=== PATIENT | female | born 1995 | race Two or more races ===

== ENCOUNTER 2019-09-18 13:53 | Inpatient (IN) | payer MEDICAID ==
[~2019-09-18] VITALS: Ht 165.1 cm; Wt 68.9 kg
[2019-09-18] MEDS ORDERED: CHLO25 PO (14:57)
[2019-09-18] MEDS ORDERED: ESCI5SOL2 PO (14:57)
[2019-09-18] MEDS ORDERED: ZIPR20CA2 PO (14:57)
[2019-09-18 15:28] LABS: BASOPHILS % (AUTO) 0.6 % (0.0-2.0); EOSINOPHILS % (AUTO) 0.7 % (1.0-6.0); HEMATOCRIT 37.4 % (36-46); HEMOGLOBIN 12.1 g/dL (12.0-16.0); LYMPHOCYTES # (AUTO) 1.9 K/uL (1.0-4.8); LYMPHOCYTES % (AUTO) 32.4 % (22.0-44.0); MEAN CORPUSCULAR HGB CONC 32.3 G/dL (31.0-37.0); MEAN CORPUSCULAR VOLUME 84 fL (80-100); MONOCYTES # (AUTO) 0.4 K/uL (0.1-1.0); MONOCYTES % (AUTO) 6.3 % (2.0-9.0); NEUTROPHILS # (AUTO) 3.6 K/uL (1.8-7.7); PLATELET COUNT (AUTO) 255 K/uL (150-450); RED BLOOD CELL COUNT(AUTO) 4.48 MIL/uL (4.00-5.20)
[2019-09-18 15:44] LABS: ANION GAP 7 mmol/L (8-16); CALCIUM, TOTAL 9.4 mg/dL (8.8-10.5); CARBON DIOXIDE 26 mmol/L (22-29); CHLORIDE 105 mmol/L (98-107); CREATININE 1.09 mg/dL (0.60-1.30); GLOMERULAR FILTR. RATE CALC > 60 mL/min (>60); GLUCOSE,RANDOM 108 mg/dL (70-110); POTASSIUM 4.4 mmol/L (3.5-5.1); SODIUM SERUM 138 mmol/L (136-145); UREA NITROGEN, BLOOD 16 mg/dL (7-18)
[2019-09-18 15:55] LABS: ALANINE AMINOTRANSFERASE 21 U/L (12-78); ALBUMIN 4.3 g/dL (3.4-5.0); ALKALINE PHOSPHATASE 75 U/L (46-116); ASPARTATE AMINOTRANSFERASE 10 U/L (15-37); BILIRUBIN,TOTAL 0.1 mg/dL (0.1-1.0); HCG,QUANTITATIVE < 1 mIU/mL (0-6); TOTAL PROTEIN, SERUM 7.9 g/dL (6.4-8.2)
[2019-09-18 18:08] LABS: AMPHET/METH SCREEN,URINE NEGATIVE (NEGATIVE); BARBITURATE SCREEN, URINE NEGATIVE (NEGATIVE); BENZODIAZEPINES SCREEN,URINE NEGATIVE (NEGATIVE); CANNABINOID SCREEN,URINE NEGATIVE (NEGATIVE); COCAINE SCREEN,URINE NEGATIVE (NEGATIVE); METHADONE SCREEN, URINE NEGATIVE (NEGATIVE); OPIATE SCREEN,URINE NEGATIVE (NEGATIVE)
[2019-09-18 18:20] LABS: PHENCYCLIDINE SCREEN,URINE NEGATIVE (NEGATIVE)
[2019-09-18] MEDS ORDERED: HALOPERIDOL 5 MG TABLET PO PRN (18:30)
[2019-09-18] MEDS ORDERED: ZOLPIDEM TARTRATE 10 MG TABLET PO PRN (18:30)
[2019-09-19 01:15] VITALS: BP 104/70
[2019-09-19 08:17] VITALS: BP 98/56
[2019-09-19 08:18] LABS: CHOL/HDL RATIO 3.6 (3.9-5.7)
[2019-09-19] MEDS: LORazepam 2 MG TABLET PO PRN (08:30)
[2019-09-19 16:00] VITALS: BP 112/62
[2019-09-19] MEDS: ChlorproMAZINE HCL 25 MG TABLET PO SCH (16:30)
[2019-09-19] MEDS: ZIPRASIDONE HCL 20 MG CAPSULE PO SCH (16:30)
[2019-09-20] MEDS: ZIPRASIDONE HCL 20 MG CAPSULE PO SCH (06:55)
[2019-09-20] MEDS: ChlorproMAZINE HCL 25 MG TABLET PO SCH ×2 (08:49→17:24)
[2019-09-20 16:02] VITALS: BP 110/63
[2019-09-20] MEDS: ZIPRASIDONE HCL 40 MG CAPSULE PO SCH (17:24)
[2019-09-20] MEDS ORDERED: ACETAMINOPHEN 325 MG TABLET PO PRN (18:00)
[2019-09-20] MEDS ORDERED: IBUPROFEN 400 MG TABLET PO PRN (18:00)
[2019-09-20] MEDS ORDERED: MAG HYDROX/AL HYDROX/SIMETH ES 30 ML SUSPENSION UDCUP PO PRN (18:00)
[2019-09-20] MEDS ORDERED: GuaiFENesin/D-METHORPHAN [SUGAR-FREE] 200-20MG/10 ML SYRUP UDCUP PO PRN (18:00)
[2019-09-20] MEDS ORDERED: MAGNESIUM HYDROXIDE SUSPENSION 30 ML UDCUP PO PRN (18:00)
[2019-09-20] MEDS ORDERED: LOPERAMIDE HCL 2 MG CAPSULE PO PRN (18:00)
[2019-09-20] MEDS ORDERED: ESCI10TA PO (18:00)
[2019-09-20] MEDS ORDERED: PETROLATUM,WHITE 28 GM JELLY TP PRN (18:00)
[2019-09-20] MEDS ORDERED: CloNIDine HCL 0.1 MG TABLET PO PRN (18:00)
[2019-09-20] MEDS ORDERED: ONDANSETRON HCL 4 MG TABLET PO PRN (18:00)
[2019-09-20] MEDS ORDERED: DOCUSATE SODIUM 100 MG CAPSULE PO PRN (18:00)
[2019-09-20] MEDS ORDERED: ALBUTEROL SULFATE HFA 90 MCG/PUFF 8 GM INHALER IH PRN (18:00)
[2019-09-20] MEDS ORDERED: NICOTINE 14 MG/24 HOUR PATCH TD PRN (18:00)
[2019-09-21 05:37] VITALS: BP 102/65
[2019-09-21] MEDS: ZIPRASIDONE HCL 40 MG CAPSULE PO SCH ×2 (06:34→17:20)
[2019-09-21 08:17] VITALS: BP 110/66
[2019-09-21] MEDS: ChlorproMAZINE HCL 25 MG TABLET PO SCH ×2 (08:35→17:20)
[2019-09-21 16:00] VITALS: BP 110/70
[2019-09-21] MEDS: LORazepam 2 MG TABLET PO PRN (17:21)
[2019-09-22 06:21] VITALS: BP 101/65
[2019-09-22] MEDS: ZIPRASIDONE HCL 40 MG CAPSULE PO SCH ×2 (07:01→17:13)
[2019-09-22 08:13] VITALS: BP 100/57
[2019-09-22] MEDS: ChlorproMAZINE HCL 25 MG TABLET PO SCH ×2 (08:34→17:12)
[2019-09-22] MEDS: LORazepam 2 MG TABLET PO PRN (17:13)
[2019-09-22 17:27] VITALS: BP 106/66
[2019-09-23 05:57] VITALS: BP 110/56
[2019-09-23] MEDS: ZIPRASIDONE HCL 40 MG CAPSULE PO SCH ×2 (06:39→17:00)
[2019-09-23 08:26] VITALS: BP 99/69
[2019-09-23] MEDS: ChlorproMAZINE HCL 25 MG TABLET PO SCH ×2 (08:27→17:01)
[2019-09-23 16:20] VITALS: BP 100/73
[2019-09-23] MEDS: LORazepam 2 MG TABLET PO PRN (20:36)
[2019-09-24 04:20] VITALS: BP 101/78
[2019-09-24] MEDS: ZIPRASIDONE HCL 40 MG CAPSULE PO SCH (06:38)
[2019-09-24 08:10] VITALS: BP 101/54
[2019-09-24] MEDS: ChlorproMAZINE HCL 25 MG TABLET PO SCH (09:19)
[2019-09-24] MEDS ORDERED: ZIPR40CA2 PO (10:25)
[2019-09-24] MEDS ORDERED: CHLO25 PO (10:25)
[2019-09-24] MEDS: LORazepam 2 MG TABLET PO PRN (12:05)
[2019-09-24 16:14] VITALS: BP 127/70
== END 2019-09-24 16:15 | disposition home or self-care (01) | DRG 750 ==
LOC: EMS 13:55 → B3A 18:52
PROVIDERS: ADMIT Psychiatry & Neurology Psychiatry; ATTEND Psychiatry & Neurology Psychiatry
DX: F20.9 Schizophrenia, unspecified (principal); I95.9 Hypotension, unspecified; R45.851 Suicidal ideations; Z91.19 Patient's noncompliance with other medical treatment and regimen; E11.9 Type 2 diabetes mellitus without complications; E03.9 Hypothyroidism, unspecified; F10.10 Alcohol abuse, uncomplicated; I10 Essential (primary) hypertension; K59.00 Constipation, unspecified; Z91.5 Personal history of self-harm; F14.90 Cocaine use, unspecified, uncomplicated; F32.9 Major depressive disorder, single episode, unspecified; F41.9 Anxiety disorder, unspecified; Z79.899 Other long term (current) drug therapy
CPT/HCPCS: 87081; G0480